=== PATIENT | male | born 1965 | race Caucasian/White ===

== ENCOUNTER 2020-06-30 16:52 | Emergency (ER) | payer OTHER ==
[~2020-06-30] VITALS: Ht 182.9 cm; Wt 79.4 kg
[~2020-06-30 16:52] MED LIST: ACETAMINOPHEN500 MG PO; ALBU90OI INH; AMOCLA875 PO; BP MEDICATION PO; BUPR150ER PO; Bactrim Ds Tab1 EACH PO; CEPH500 PO; CITA20 PO; FLUSAL1005 INH; HYDACE10B PO; HYDACE5 PO; Keflex500 MG PO; Loperamide2 MG PO; Lotrimin Ultra12 GM TP; Monodox100 MG PO; PROM25 PO; Pepcid40 MG PO; RXTRAM50 PO; SPACE CHAMBER1 EACH MC; SULTRIDS PO; TRAM50 PO; TRAZ50 PO; ZESTORETIC 20-121 EA PO; Zofran Odt4 MG PO
== END 2020-06-30 20:14 | disposition left against medical advice (07) ==
LOC: ER 16:52
DX: Z53.21 Procedure and treatment not carried out due to patient leaving prior to being seen by health care provider (principal)
CPT/HCPCS: 73030; 99283-25

== ENCOUNTER 2022-02-02 19:36 | Emergency (ER) | payer OTHER ==
[~2022-02-02] VITALS: Ht 182.9 cm; Wt 74.8 kg
[2022-02-02 20:15] LABS: BASOPHILS ABSOLUTE AUTO 0.07 K/mm3 (0.00-0.23); BASOPHILS PERCENT AUTO 1 % (0-2); EOSINOPHILS ABSOLUTE AUTO 0.19 K/mm3 (0.00-0.68); EOSINOPHILS PERCENT AUTO 2 % (0-6); Hematocrit 44.1 % (37.0-53.0); Hemoglobin 15.8 g/dL (13.5-17.5); IMMATURE GRAN ABSOLUTE AUTO 0.03 K/mm3 (0.00-0.10); IMMATURE GRAN PERCENT AUTO 0 % (0-1); LYMPHOCYTES ABSOLUTE AUTO 3.24 K/mm3 (0.84-5.20); LYMPHOCYTES PERCENT AUTO 37 % (21-46); MONOCYTES ABSOLUTE AUTO 0.73 K/mm3 (0.16-1.47); MONOCYTES PERCENT AUTO 8 % (4-13); Mean Corpuscular HGB 36.3 pg (26.0-34.0); Mean Corpuscular HGB Conc 35.8 g/dL (31.5-36.5); Mean Corpuscular Volume 101 fL (80-100); Mean Platelet Volume 8.5 fL (9.1-12.4); NEUTROPHILS ABSOLUTE AUTO 4.44 K/mm3 (1.96-9.15); NEUTROPHILS PERCENT AUTO 51 % (41-73); Platelet Count 208 K/mm3 (150-400); RDW Coefficient Variation 12.5 % (11.7-14.2); RDW Standard Deviation 47.6 fL (35.1-46.3); Red Blood Cell Count 4.35 M/mm3 (4.30-5.90)
[2022-02-02 20:44] LABS: Alanine Aminotransfer (ALT/SGP 48 U/L (12-78); Albumin, Blood 3.7 g/dL (3.4-5.0); Albumin/Globulin Ratio 0.8 (0.8-1.8); Alk Phos 101 U/L (50-136); Anion Gap 10 mmol/L (6-16); Aspartate Aminotrans (AST/SGOT 53 U/L (12-37); Bilirubin, Total 0.6 mg/dL (0.1-1.0); Blood Urea Nitrogen 3 mg/dL (8-24); Bun/Creatinine Ratio 5.4 (12.0-20.0); CO2, Blood 24 mmol/L (21-32); Calcium, Blood 8.6 mg/dL (8.5-10.1); Chloride, Blood 100 mmol/L (98-108); Creatinine, Blood 0.56 mg/dL (0.60-1.20); Globulin, Blood 4.5 g/dL (2.2-4.0); Glomerular Filtration Rate >60 (60-); Glucose, Blood 100 mg/dL (70-99); Potassium, Blood 3.8 mmol/L (3.5-5.5); Sodium, Blood 134 mmol/L (136-145); Total Protein, Blood 8.2 g/dL (6.4-8.2)
[2022-02-02 21:05] LABS: Influenza A, PCR NEGATIVE (NEGATIVE); Influenza B, PCR NEGATIVE (NEGATIVE); Resp Syncytial Virus, PCR NEGATIVE (NEGATIVE); SARS-Cov-2 (COVID-19) PCR, MMC NEGATIVE (NEGATIVE)
[2022-02-02] MEDS ORDERED: IBUP400 PO (21:50)
== END 2022-02-02 22:05 | disposition home or self-care (01) ==
LOC: ER 19:36
PROVIDERS: Physician Assistant; Student in an Organized Health Care Education/Training Program
DX: M62.838 Other muscle spasm (principal); R07.89 Other chest pain; I10 Essential (primary) hypertension; F17.210 Nicotine dependence, cigarettes, uncomplicated; Z79.899 Other long term (current) drug therapy; Z88.5 Allergy status to narcotic agent
CPT/HCPCS: 0241U; 71045; 80053; 84484; 85025; 93005; 93010; 96374; 99285-25; A9270; J1885

== ENCOUNTER 2022-08-04 09:48 | Emergency (ER) | payer OTHER ==
[~2022-08-04] VITALS: Ht 182.9 cm; Wt 77.1 kg
[~2022-08-04 09:48] MED LIST changes: +IBUP400 PO
[2022-08-04 10:46] LABS: BASOPHILS ABSOLUTE AUTO 0.06 K/mm3 (0.00-0.23); BASOPHILS PERCENT AUTO 1 % (0-2); EOSINOPHILS ABSOLUTE AUTO 0.06 K/mm3 (0.00-0.68); EOSINOPHILS PERCENT AUTO 1 % (0-6); Hematocrit 44.1 % (37.0-53.0); Hemoglobin 15.8 g/dL (13.5-17.5); IMMATURE GRAN ABSOLUTE AUTO 0.02 K/mm3 (0.00-0.10); IMMATURE GRAN PERCENT AUTO 0 % (0-1); LYMPHOCYTES ABSOLUTE AUTO 1.93 K/mm3 (0.84-5.20); LYMPHOCYTES PERCENT AUTO 26 % (21-46); MONOCYTES ABSOLUTE AUTO 0.71 K/mm3 (0.16-1.47); MONOCYTES PERCENT AUTO 10 % (4-13); Mean Corpuscular HGB 37.4 pg (26.0-34.0); Mean Corpuscular HGB Conc 35.8 g/dL (31.5-36.5); Mean Corpuscular Volume 105 fL (80-100); Mean Platelet Volume 8.2 fL (9.1-12.4); NEUTROPHILS ABSOLUTE AUTO 4.66 K/mm3 (1.96-9.15); NEUTROPHILS PERCENT AUTO 63 % (41-73); Platelet Count 199 K/mm3 (150-400); RDW Coefficient Variation 12.6 % (11.7-14.2); RDW Standard Deviation 49.3 fL (35.1-46.3); Red Blood Cell Count 4.22 M/mm3 (4.30-5.90); White Blood Cell Count 7.44 K/mm3 (4.00-11.30)
[2022-08-04 11:00] LABS: Albumin, Blood 3.5 g/dL (3.4-5.0); Albumin/Globulin Ratio 0.8 (0.8-1.8); Bilirubin, Total 0.3 mg/dL (0.1-1.0); Bun/Creatinine Ratio 8.1 (12.0-20.0); Calcium, Blood 7.7 mg/dL (8.5-10.1); Creatinine, Blood 0.49 mg/dL (0.60-1.20); Globulin, Blood 4.2 g/dL (2.2-4.0); Potassium, Blood 3.6 mmol/L (3.5-5.5); Total Protein, Blood 7.7 g/dL (6.4-8.2)
[2022-08-04] MEDS ORDERED: CHLO25 PO (11:16)
== END 2022-08-04 11:37 | disposition home or self-care (01) ==
LOC: ER 09:48
PROVIDERS: Emergency Medicine
DX: F10.239 Alcohol dependence with withdrawal, unspecified (principal); I10 Essential (primary) hypertension; J44.9 Chronic obstructive pulmonary disease, unspecified; F17.210 Nicotine dependence, cigarettes, uncomplicated; Z88.5 Allergy status to narcotic agent; Z79.899 Other long term (current) drug therapy
CPT/HCPCS: 36415; 80053; 85025; J2405; J7030

== ENCOUNTER 2023-06-29 21:48 | Inpatient (IN) | payer OTHER ==
[~2023-06-29] VITALS: Ht 182.9 cm; Wt 74.8 kg
[~2023-06-29 21:48] MED LIST changes: +CHLO25 PO
[2023-06-29 22:16] LABS: Hematocrit 31.7 % (37.0-53.0); Hemoglobin 11.6 g/dL (13.5-17.5); Mean Corpuscular HGB 38.5 pg (26.0-34.0); Mean Corpuscular HGB Conc 36.6 g/dL (31.5-36.5); Mean Corpuscular Volume 105 fL (80-100); NRBC ABSOLUTE 0.05 K/mm3 (0.00-0.02); NRBC Auto 0.3 /100 WBC (0.0-0.2); Platelet Count 425 K/mm3 (150-400); RDW Coefficient Variation 13.2 % (11.7-14.2); RDW Standard Deviation 50.7 fL (35.1-46.3); Red Blood Cell Count 3.01 M/mm3 (4.30-5.90); White Blood Cell Count 15.96 K/mm3 (4.00-11.30)
[2023-06-29 22:36] LABS: BAND PERCENT MAN 6 % (0-8); BASOPHILS PERCENT MAN 0 % (0-2); EOSINOPHILS ABSOLUTE MAN 0.15 K/mm3 (0.00-0.68); EOSINOPHILS PERCENT MAN 1 % (0-6); LYMPHOCYTES ABSOLUTE MAN 2.39 K/mm3 (0.84-5.20); LYMPHOCYTES PERCENT MAN 15 % (21-46); METAMYELOCYTE ABSOLUTE MAN 0.31 K/mm3 (0.00-0.00); METAMYELOCYTE PERCENT MAN 2 % (0-0); MONOCYTES ABSOLUTE MAN 1.43 K/mm3 (0.16-1.47); MONOCYTES PERCENT MAN 9 % (4-13); MYELOCYTE ABSOLUTE MAN 0.15 K/mm3 (0.00-0.00); MYELOCYTE PERCENT MAN 1 % (0-0); NEUTROPHILS ABSOLUTE MAN 11.49 K/mm3 (1.96-9.15); SEG NEUTROPHILS PERCENT MAN 66 % (41-73); TOTAL CELLS COUNTED 100
[2023-06-29 22:56] LABS: Albumin, Blood 2.8 g/dL (3.4-5.0); Albumin/Globulin Ratio 0.7 (0.8-1.8); Bilirubin, Total 0.8 mg/dL (0.1-1.0); Bun/Creatinine Ratio 15.3 (12.0-20.0); Creatinine, Blood 0.46 mg/dL (0.60-1.20); Globulin, Blood 4.1 g/dL (2.2-4.0); Potassium, Blood 3.9 mmol/L (3.5-5.5); Total Protein, Blood 6.9 g/dL (6.4-8.2)
[2023-06-30] VITALS (18 sets, daily range): BP systolic 121–164; BP diastolic 65–90
[2023-06-30 04:17] LABS: Hematocrit 30.6 % (37.0-53.0); Hemoglobin 11.1 g/dL (13.5-17.5); Mean Corpuscular HGB 37.9 pg (26.0-34.0); Mean Corpuscular HGB Conc 36.3 g/dL (31.5-36.5); Mean Corpuscular Volume 104 fL (80-100); Mean Platelet Volume 8.6 fL (9.1-12.4); NRBC ABSOLUTE 0.03 K/mm3 (0.00-0.02); NRBC Auto 0.2 /100 WBC (0.0-0.2); Platelet Count 389 K/mm3 (150-400); RDW Standard Deviation 48.3 fL (35.1-46.3); Red Blood Cell Count 2.93 M/mm3 (4.30-5.90); White Blood Cell Count 12.08 K/mm3 (4.00-11.30)
[2023-06-30 04:32] LABS: Bun/Creatinine Ratio 13.4 (12.0-20.0); Creatinine, Blood 0.52 mg/dL (0.60-1.20); Potassium, Blood 3.4 mmol/L (3.5-5.5)
[2023-06-30 04:36] LABS: BAND PERCENT MAN 8 % (0-8); BASOPHILS PERCENT MAN 0 % (0-2); EOSINOPHILS ABSOLUTE MAN 0.24 K/mm3 (0.00-0.68); EOSINOPHILS PERCENT MAN 2 % (0-6); LYMPHOCYTES ABSOLUTE MAN 1.81 K/mm3 (0.84-5.20); LYMPHOCYTES PERCENT MAN 15 % (21-46); METAMYELOCYTE PERCENT MAN 5 % (0-0); MONOCYTES ABSOLUTE MAN 0.72 K/mm3 (0.16-1.47); MONOCYTES PERCENT MAN 6 % (4-13); MYELOCYTE ABSOLUTE MAN 0.36 K/mm3 (0.00-0.00); MYELOCYTE PERCENT MAN 3 % (0-0); NEUTROPHILS ABSOLUTE MAN 8.33 K/mm3 (1.96-9.15); SEG NEUTROPHILS PERCENT MAN 61 % (41-73); TOTAL CELLS COUNTED 100
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
--- NOTE | 2023-06-30 18:44 | NUR ---
SHIFT SUMMARY PT A&OX4, VSS/RA, CIWAS NEG, NANNETTE PO, PAIN TREATED WITH NORCO 5 MG, VOIDING/URINAL, REPOSITIONS SELF. S/P R HIP REPAIR, AQUACEL CDI. WILL REPORT TO ONCOMING NOC FREDY.
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
[2023-07-01 04:52] VITALS: BP 109/76
--- NOTE | 2023-07-01 05:01 | NUR ---
FIRE RISK ASSESSED THIS SHIFT, PT EDUCATED ON FIRE RISKS AND IGNITION SOURCES. PT DENIES HAVING IGNITION SOURCES.
[2023-07-01 07:16] VITALS: BP 110/71
[2023-07-01 16:04] VITALS: BP 110/72
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
[2023-07-01 19:21] VITALS: BP 111/79
[2023-07-02 03:32] VITALS: BP 114/70
[2023-07-02 07:25] VITALS: BP 111/82
--- NOTE | 2023-07-02 07:37 | NUR ---
POD 2 S/P RIGHT HIP REP. PT VSS T/O NIGHT. DRESSING TO RIGHT HIP W/LIGHT SHADOWING NOTED. CAP REFILL WNL, PT DENIED CHANGES IN SENSATION. PAIN MGD W/2 NORCO W/REP RELIEF. CIWA MAX 4 THIS SHIFT LIBRIUM GIVEN X1. PT NANNETTE PO, DENIED N/V, IS VOIDING URINE W/O DIFFICULTY. PT USING CALL LIGHT FOR ASSISTANCE. PLAN TO MOBILIZE W/PT AND AWAIT DC PLANNING.
--- NOTE | 2023-07-02 08:15 | NUR ---
update notified from tele pt has hr drop into 30's. attempted to contact md at this time.
--- NOTE | 2023-07-02 10:59 | NUR ---
UPDATE MD NOTIFIED OF PT JOSE DOWN IN TO 40'S WITH 3.1 SEC PAUSE.
[2023-07-02 13:26] LABS: Bun/Creatinine Ratio 15.7 (12.0-20.0); Calcium, Blood 8.2 mg/dL (8.5-10.1); Creatinine, Blood 0.51 mg/dL (0.60-1.20); Magnesium, Blood 1.8 mg/dL (1.6-2.4); Potassium, Blood 4.2 mmol/L (3.5-5.5)
[2023-07-02 15:03] VITALS: BP 111/83
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
[2023-07-02 20:22] VITALS: BP 111/70
[2023-07-03 02:40] VITALS: BP 108/75
--- NOTE | 2023-07-03 04:48 | NUR ---
SHIFT SUMMARY PT CIWAS HAVE BEEN UNREMARKABLE. PT HAS BEEN TX FOR HIP PAIN PER JAN WITH RELIEF. PT HAS BEEN VOIDING WELL THROUGHOUT SHIFT. PT HAS HAD A BM THIS AM. PT PT HAD NO EVENTS NOTED FROM [employer] [facility]. PT HAS REMAINED IN SINUS RHYTHM. PT HAS SLEPT OFF AND ON. PT AQUACEL HAS SOME SHADOWING NOTED. CALL LIGHT IN REACH.
[2023-07-03 08:19] VITALS: BP 111/70
[2023-07-03 14:33] VITALS: BP 118/80
--- NOTE | 2023-07-03 16:52 | NUR ---
SHIFT SUMAMRY NO ACUTE CHANGES THIS SHIFT. PATIENT IS POD 4 R HIP NAILING. AQUACEL REMAINS INTACT, SOME SHADOWING NOTED. PATIENT REPORTS MIDERATE TO HIGH PAIN MOST OF THE TIME, WITH SOME RELIEF WITH PAIN MEDICATION PER EMAR. RELUCTANT TO WORK WITH THERAPY AND/OR GET UP TO CHAIR WITH STAFF. EATING, DRINKING, & VOIDING W/O DIFFICULTY. BM TODAY. CALL LIGHT IN REACH. WILL REPORT TO ONCOMING RN AT 1900.
[2023-07-03 20:15] VITALS: BP 110/75
[2023-07-04 03:22] VITALS: BP 112/65
[2023-07-04 04:17] LABS: Hematocrit 30.4 % (37.0-53.0); Hemoglobin 10.3 g/dL (13.5-17.5); Mean Corpuscular HGB 37.3 pg (26.0-34.0); Mean Corpuscular HGB Conc 33.9 g/dL (31.5-36.5); Mean Corpuscular Volume 110 fL (80-100); Mean Platelet Volume 8.4 fL (9.1-12.4); Platelet Count 297 K/mm3 (150-400); RDW Coefficient Variation 13.8 % (11.7-14.2); RDW Standard Deviation 55.4 fL (35.1-46.3); Red Blood Cell Count 2.76 M/mm3 (4.30-5.90)
[2023-07-04 04:43] LABS: Albumin, Blood 2.3 g/dL (3.4-5.0); Anion Gap 5 mmol/L (6-16); Blood Urea Nitrogen 8 mg/dL (8-24); Bun/Creatinine Ratio 17.2 (12.0-20.0); CO2, Blood 23 mmol/L (21-32); Calcium, Blood 8.3 mg/dL (8.5-10.1); Chloride, Blood 106 mmol/L (98-108); Creatinine, Blood 0.47 mg/dL (0.60-1.20); Glomerular Filtration Rate 120 (60-); Glucose, Blood 147 mg/dL (70-99); Phosphorus, Blood 4.2 mg/dL (2.5-4.9); Potassium, Blood 3.9 mmol/L (3.5-5.5); Sodium, Blood 134 mmol/L (136-145)
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
[2023-07-04 07:07] VITALS: BP 112/73
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
[2023-07-04 15:02] VITALS: BP 118/79
--- NOTE | 2023-07-04 18:25 | NUR ---
SHIFT SUMMARY POD5 R HIP NAILING, A/OX4, VSS, TOLERATING PO, ABLE TO GET OUT OF BED AND AMBULATE A SMALL DISTANCE WHEN TRANSFERRING TO CHAIR OR BSC, PAIN WELL MANAGED. NO ACUTE EVENTS THIS SHIFT, CALL LIGHT IN REACH, WILL REPORT ON TO ONCOMING NOC RN.
[2023-07-04 19:47] VITALS: BP 122/73
--- NOTE | 2023-07-05 02:54 | NUR ---
SHIFT SUMMARY NO ACUTE CHANGES TO REPORT OVERNIGHT, PT HAS RESTED T/O THE NIGHT. ASSESSMENT REMAINS UNCHANGED. PT MEDICATED FOR PAIN PER EMAR, VITALS STABLE. PT DENIES N/T IN EXT AND IS ABLE TO WIGGLE TOES. PLAN OF CARE UNCHANGED. BED IN LOWEST POSITION CALL LIGHT WITHIN REACH.
[2023-07-05 03:41] VITALS: BP 122/87
[2023-07-05 07:07] VITALS: BP 114/73
--- NOTE | 2023-07-05 07:34 | NUR ---
ASSUMED CARE AT 0330.MED X1 PO FOR PAIN.NO ACUTE CHANGES.
[2023-07-05] MEDS ORDERED: MIRALAX1714 PO (13:05)
[2023-07-05] MEDS ORDERED: MULVITA PO (13:05)
[2023-07-05] MEDS ORDERED: B-1100 M1 PO (13:06)
[2023-07-05] MEDS ORDERED: HYDR1TAB94 PO (13:06)
--- NOTE | 2023-07-05 15:50 | NUR ---
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
== END 2023-07-05 15:54 | disposition home health service (06) | DRG 481 ==
LOC: ER 21:48 → ERHOLD 23:34 → SURS 23:34
PROVIDERS: Internal Medicine; Orthopaedic Surgery; Physician Assistant; ADMIT Internal Medicine
PROC: HZ2ZZZZ Detoxification Services for Substance Abuse Treatment (ICD-10-PCS; 2023-06-29)
PROC: 0QS636Z Reposition Right Upper Femur with Intramedullary Internal Fixation Device, Percutaneous Approach (ICD-10-PCS; principal; 2023-06-30 10:00)
DX: S72.141A Displaced intertrochanteric fracture of right femur, initial encounter for closed fracture (principal); E87.1 Hypo-osmolality and hyponatremia; F10.239 Alcohol dependence with withdrawal, unspecified; W01.0XXA Fall on same level from slipping, tripping and stumbling without subsequent striking against object, initial encounter; I10 Essential (primary) hypertension; M54.9 Dorsalgia, unspecified; J44.9 Chronic obstructive pulmonary disease, unspecified; G89.29 Other chronic pain; D72.829 Elevated white blood cell count, unspecified; E87.6 Hypokalemia; I45.5 Other specified heart block; M71.21 Synovial cyst of popliteal space [Baker], right knee; F17.210 Nicotine dependence, cigarettes, uncomplicated; D64.9 Anemia, unspecified; Z88.5 Allergy status to narcotic agent; Z88.8 Allergy status to other drugs, medicaments and biological substances; Z79.811 Long term (current) use of aromatase inhibitors; Z79.899 Other long term (current) drug therapy; Z71.6 Tobacco abuse counseling; Z98.890 Other specified postprocedural states
CPT/HCPCS: 36415; 71045; 73502; 80048; 80053; 80069; 83735; 85025; 85027; 93005; 93010; 93971; 96374; 96375; 96376; 97110; 97116; 97162; 97530; 99285-25; A9270; C1713; C1769; C9113; J0690; J1100; J1650; J2405; J2704; J3010; J3411; J3475; J3480; J7030; J7042; J7050; J7120

== ENCOUNTER 2023-07-11 18:07 | Emergency (ER) | payer OTHER ==
[~2023-07-11] VITALS: Ht 182.9 cm; Wt 74.8 kg
[~2023-07-11 18:07] MED LIST changes: +B-1100 M1 PO; +HYDR1TAB94 PO; +MIRALAX1714 PO; +MULVITA PO
[2023-07-11 19:31] LABS: BASOPHILS ABSOLUTE AUTO 0.06 K/mm3 (0.00-0.23); BASOPHILS PERCENT AUTO 1 % (0-2); EOSINOPHILS ABSOLUTE AUTO 0.17 K/mm3 (0.00-0.68); EOSINOPHILS PERCENT AUTO 2 % (0-6); Hematocrit 33.3 % (37.0-53.0); Hemoglobin 11.7 g/dL (13.5-17.5); IMMATURE GRAN ABSOLUTE AUTO 0.07 K/mm3 (0.00-0.10); IMMATURE GRAN PERCENT AUTO 1 % (0-1); LYMPHOCYTES ABSOLUTE AUTO 3.08 K/mm3 (0.84-5.20); LYMPHOCYTES PERCENT AUTO 42 % (21-46); MONOCYTES ABSOLUTE AUTO 0.61 K/mm3 (0.16-1.47); MONOCYTES PERCENT AUTO 8 % (4-13); Mean Corpuscular HGB 37.5 pg (26.0-34.0); Mean Corpuscular HGB Conc 35.1 g/dL (31.5-36.5); Mean Corpuscular Volume 107 fL (80-100); Mean Platelet Volume 8.3 fL (9.1-12.4); NEUTROPHILS ABSOLUTE AUTO 3.35 K/mm3 (1.96-9.15); NEUTROPHILS PERCENT AUTO 46 % (41-73); Platelet Count 369 K/mm3 (150-400); RDW Coefficient Variation 13.8 % (11.7-14.2); Red Blood Cell Count 3.12 M/mm3 (4.30-5.90); White Blood Cell Count 7.34 K/mm3 (4.00-11.30)
[2023-07-11 20:06] LABS: Albumin, Blood 2.8 g/dL (3.4-5.0); Albumin/Globulin Ratio 0.6 (0.8-1.8); Bilirubin, Total 0.3 mg/dL (0.1-1.0); Bun/Creatinine Ratio 9.9 (12.0-20.0); Calcium, Blood 8.2 mg/dL (8.5-10.1); Creatinine, Blood 0.41 mg/dL (0.60-1.20); Globulin, Blood 4.4 g/dL (2.2-4.0); Potassium, Blood 3.8 mmol/L (3.5-5.5); Total Protein, Blood 7.2 g/dL (6.4-8.2)
[2023-07-12 09:07] VITALS: BP 136/91
[2023-07-12] MEDS ORDERED: HYDR1TAB94 PO (09:34)
== END 2023-07-12 10:05 | disposition home or self-care (01) ==
LOC: ER 18:07
PROVIDERS: Emergency Medicine
DX: G89.18 Other acute postprocedural pain (principal); M25.551 Pain in right hip; I10 Essential (primary) hypertension; F17.210 Nicotine dependence, cigarettes, uncomplicated
CPT/HCPCS: 80053; 85025; 96372; 99284; A9270; J1885